=== PATIENT | female | born 1975 | race Caucasian/White ===

== ENCOUNTER 2019-08-12 16:05 | Inpatient (IN) | payer MEDICAID, SELFPAY ==
[~2019-08-12] VITALS: Ht 170.2 cm; Wt 112.9 kg
[2019-08-12 16:08] VITALS: BP 110/72
--- NOTE | 2019-08-12 16:15 | NUR ---
PT WAS BIBA C/O SOB WITH EXERTION AND ATRIAL FLUTER FROM CLINIC. PT DENIES HAVING NAUSEA, VOMITING, CP, NO ACCESSORY MUSCLE USED OR LABOR BREATHING NOTICED. AAOX4 WITH EVEN AND STEADY GAIT; LUNGS CLEAR BL; PT DENIES ANY FEVER, CP, SOB, OR COUGH AT THIS TIME; PATIENT STATES PAIN OF 0/10 AT THIS TIME; VSS; PATIENT POSITIONED FOR COMFORT; HOB ELEVATED; BEDRAILS UP X2; BED DOWN. ER MD MADE AWARE OF PT STATUS.
[2019-08-12] MEDS ORDERED: NACL 0.9% 1,000 ML IV ONE (16:45)
[2019-08-12] MEDS ORDERED: DILTIAZEM 25 MG/5 ML VIAL IVP ONE ×3 (16:45→22:35)
[2019-08-12 17:44] LABS: BASOPHILS % (AUTO) 0.6 % (0.0-2.0); EOSINOPHILS # (AUTO) 0.2 K/uL (0-0.4); EOSINOPHILS % (AUTO) 2.6 % (0.0-4.0); HEMATOCRIT 42.7 % (36-48); HEMOGLOBIN 14.2 g/dL (12.0-16.0); LYMPHOCYTES # (AUTO) 1.3 K/uL (2.5-16.5); LYMPHOCYTES % (AUTO) 17.6 % (20.5-51.1); MEAN CORPUSCULAR HEMOGLOBIN 31 pg (27-31); MEAN CORPUSCULAR HGB CONC 33 g/dL (33-37); MEAN CORPUSCULAR VOLUME 93.4 fL (80-94); MONOCYTES # (AUTO) 0.8 K/uL (0.8-1.0); MONOCYTES % (AUTO) 10.7 % (1.7-9.3); NEUTROPHILS # (AUTO) 5.2 K/uL (1.8-7.7); NEUTROPHILS % (AUTO) 68.5 % (42.2-75.2); PLATELET COUNT (AUTO) 223 K/uL (140-450); RED BLOOD CELL COUNT(AUTO) 4.57 MIL/uL (4.20-5.40); RED CELL DISTRIBUTION WIDTH 13.4 % (11.6-13.7); WHITE BLOOD COUNT (AUTO) 7.5 K/uL (4.8-10.8)
[2019-08-12 17:56] LABS: ALBUMIN 3.2 g/dL (3.4-5.0); ANION GAP 14.1 (8-16); CARBON DIOXIDE 28.4 mmol/L (21-32); CREATININE 1.8 mg/dL (0.6-1.3); FREE T4 (FREE THYROXINE) 1.35 ng/dL (0.76-1.46); POTASSIUM 3.5 mmol/L (3.5-5.1); PROTHROMBIN TIME 11.6 secs (10.8-13.4); THYROID STIMULATING HORMONE 1.9 uIU/mL (0.34-3.74); TOTAL BILIRUBIN 1.4 mg/dL (0.0-1.0)
[2019-08-12] MEDS ORDERED: METOPROLOL 5 MG/5 ML VIAL IVP ONE (19:05)
--- NOTE | 2019-08-12 19:22 | NUR ---
REPORT GIVEN TO JEROME CHARGE NURSE FOR CONTINUITY OF CARE
[2019-08-12 19:27] LABS: APPEARANCE,URINE HAZY (CLEAR); BILIRUBIN,URINE NEGATIVE (NEGATIVE); BLOOD, URINE NEGATIVE (NEGATIVE); COLOR,URINE YELLOW (YELLOW); LEUKOCYTE ESTERASE ,URINE NEGATIVE (NEGATIVE); NITRITE, URINE NEGATIVE (NEGATIVE); UGLUCOSE NEGATIVE (NEGATIVE)
--- NOTE | 2019-08-12 20:26 | NUR ---
PT WANTED SANDWITCH AND GIVEN BY BUZZ DAVIS. PT HAD NO ABDOMINAL PAIN COMPLAINS WHILE SHE IS EATING HER SANDWITCH.
[2019-08-12] MEDS ORDERED: METOPROLOL 5 MG/5 ML VIAL ONE (20:44)
--- NOTE | 2019-08-12 20:49 | NUR ---
Dr. Samuel is evaluating the patient at bedside.
--- NOTE | 2019-08-12 21:26 | NUR ---
pt sign consent for ct angio
--- NOTE | 2019-08-12 21:30 | NUR ---
PT STATED SHE IS NOT . SHE HAS AN IUD (INTRAUTERINE DEVICE) ON.
[2019-08-12] MEDS ORDERED: DOCUSATE SODIUM 100 MG GELCAP PO PRN (21:45)
[2019-08-12] MEDS ORDERED: ONDANSETRON 4 MG/2 ML VIAL IM/IVP PRN (21:45)
[2019-08-12] MEDS ORDERED: ACETAMINOPHEN 325 MG TAB PO PRN (21:45)
[2019-08-12] MEDS ORDERED: MORPHINE SULFATE 2 MG/ML SYR IVP PRN (21:45)
[2019-08-12 22:06] LABS: BARBITURATE, URINE NEGATIVE ng/ml (NEG <=200); BENZODIAZEPINE, URINE NEGATIVE ng/mL (NEG <=200); CANNABINOID, URINE NEGATIVE ng/mL (NEG <=50); COCAINE, URINE NEGATIVE ng/mL (NEG <=300); OPIATE, URINE NEGATIVE ng/mL (NEG <=2000); PHENCYCLIDINE SCREEN,URINE NEGATIVE ng/mL (NEG <=25)
--- NOTE | 2019-08-12 22:15 | NUR ---
DR BACON ( RESIDENT MD) AT THE PT BEDSIDE. PT WILL BE ADMITTED TO THE HOSPITAL PER DR BACON
[2019-08-12 22:16] LABS: MAGNESIUM 1.7 mg/dL (1.8-2.4); THYROID STIMULATING HORMONE 1.94 uIU/mL (0.34-3.74)
--- NOTE | 2019-08-12 22:45 | NUR ---
RECIVED REPORT FROM CHARGE NURSE JEROME DAVIS.
--- NOTE | 2019-08-12 22:45 | NUR ---
PT WILL BE ADMITTED TO TELEMETRY PER DR BACON, AWAITING FOR BED.
[2019-08-12] MEDS ORDERED: MAG SULF 2000 MG/WATER PREMIX 50 ML IV SCH (22:50)
[2019-08-12] MEDS ORDERED: DILT-135 PO (22:53)
--- NOTE | 2019-08-12 22:55 | NUR ---
CARDIZEM 40MG GIVEN IVP OVER 2 MIN. PT ON MOTEL FRONT DESK ATTENDANT. PT HR: 145. PT RESPIRATIONS ARE EVEN AND UNLABORED. SKIN IS WARM AND DRY TO TOUCH. PT DENIES PAIN AT THIS TIME. BED LOCKED AND IN LOWEST POSTIONS. PT IV SITE IS PATENT. NO, REDNESS, OR SWELLING NOTED AT SITE.
--- NOTE | 2019-08-12 23:16 | NUR ---
Dr. Martinez is re-evaluating the patient at bedside.
[2019-08-12] MEDS ORDERED: MAG SULF 2000 MG/WATER PREMIX 50 ML IV ONE (23:30)
[2019-08-12] MEDS ORDERED: DILTIAZEM 125 MG/25 ML VIAL IV ONE (23:35)
[2019-08-12] MEDS: DILTIAZEM 125 MG in DEXTROSE 5% 100 ML IV SCH (23:59)
[2019-08-13] VITALS (88 sets, daily range): BP systolic 90–152; BP diastolic 36–104
--- NOTE | 2019-08-13 | NUR ---
CARDIZEM 125MG IN D5% 100 ML TITRATED. MEDICATION RUNNING AT 10MG/H. IV SITE IS IN L AC 20G. PT IV SITE IS PATENT. NO C/O REDNESS, OR SWELLING AT SITE.
--- NOTE | 2019-08-13 00:15 | NUR ---
CARDIZEM DRIP INCREASED TO 15MLS/HR. PT HR REMAINS AT 145. PT ON GROUNDWATER CONSULTANT. PT AAOX4. DENIES CP AT THIS TIME BUT ADMITS TO DIFFICULTY BREATHING. PT HOB RAISED FOR COMFORT. PT 02SAT@ 97%.
--- NOTE | 2019-08-13 01:14 | NUR ---
PT HR: 128. PT RESPIRATIONS ARE EVEN AND UNLABORED. SKIN IS WARM AND DRY TO TOUCH. PT CONTINUES ON CARDIAC MONIOTR. PT AAO X4. PT DENIES PAIN AT THIS TIME.
--- NOTE | 2019-08-13 01:15 | NUR ---
Patient will be admitted to care of . Admited to ICU. Will go to room 1. Belongings list completed. Report to MARLEN DAVIS.
--- NOTE | 2019-08-13 01:15 | NUR ---
REPORT RECEIVED FROM ER NURSE AT BEDSIDE. PT IN STABLE CONDITION. AAOX4. INTRODUCED SELF TO PT. NO COMPLAINTS OF PAIN. NO SOB ON RA. AFEBRILE@98.0. PT IS AMBULATORY. PT IS CONTINENT AND HAS BEDSIDE COMMODE. PT ON CARDIAC DIET. IV SITE L AC 20G RUNNING CARDIZEM DRIP@15ML/HR PATENT AND INTACT. AND NS@60ML/HR PATENT AND INTACT. SKIN WARM, DRY, AND INTACT WITH NO OPEN WOUNDS. BED LOCKED IN LOW POSITION. CALL MEEHAN WITHIN REACH. SAFETY PRECAUTION IN PLACE. ALL NEEDS MET AT THIS TIME.
--- NOTE | 2019-08-13 02:26 | NUR ---
MAG RIDER GIVEN FOR MAG 1.7.
[2019-08-13] MEDS ORDERED: DIGOXIN 0.25 MG/ML AMP IV SCH ×2 (02:45→14:36)
[2019-08-13] MEDS: NACL 0.9% 1,000 ML IV SCH ×2 (02:48→14:22)
--- NOTE | 2019-08-13 03:16 | NUR ---
DIGOXIN GIVEN FOR INCREASED HR. PT TOLERATED WELL. Addendum: 08/13/19 at 0713 by Jorge Mcadams RN HEPARIN GIVEN SUBQ. Addendum: 08/13/19 at 0714 by Jorge Mcadams RN CORONAVIRUS SANTOS TEST TAKEN.
[2019-08-13] MEDS ORDERED: DILTIAZEM 125 MG/25 ML VIAL IV ONE (05:46)
[2019-08-13] MEDS: DILTIAZEM 125 MG in DEXTROSE 5% 100 ML IV SCH ×2 (06:15→15:39)
--- NOTE | 2019-08-13 06:15 | NUR ---
CARDIZEM NEW BAG HUNG AND RUNNING FOR CONTINUOUS DRIP.
--- NOTE | 2019-08-13 07:28 | NUR ---
REPORT GIVEN TO AM NURSE AT BEDSIDE. PT IN STABLE CONDITION.
--- NOTE | 2019-08-13 07:30 | NUR ---
RECEIVED BEDSIDE REPORT FROM PLANT CUSTODIAN RN. PT IS AAOX4. AFEBRILE. DENIES PAIN. ATRIAL FLUTTER ON MONITOR. PT IS ON ROOM AIR. LUNGS SOUND CLEAR BILATERALLY. BREATHING EVEN AND UNLABORED. NO SOB OR OTHER SIGNS OF RESP DISTRESS. ABDOMEN SOFT, ROUND, NONTENDER WITH ACTIVE BOWEL SOUNDS X 4 QUADRANTS. PERIPHERAL IV G 20 TO LEFT ANTECUBITAL PATENT AND INTACT. PT IS ON CARDIZEM DRIP AT 15 MG/HR AND IVF NS AT 60 ML/HR. SKIN IS INTACT, DRY AND WARM TO TOUCH. PT IS CONTINENT, USES BEDSIDE COMMODE. HOB AT 30 DEGREES, BED IN LOWEST POSITION LOCKED. CALL LIGHT WITHIN REACH. NO SIGNS OF DISTRESS AT THIS TIME. WILL CONTINUE TO MONITOR.
--- NOTE | 2019-08-13 08:53 | NUR ---
DR. MASTERS MADE AWARE OF FLUCTUATING HEART RATE FROM 140'S BPM TO 120'S. PT STILL HAS ATRIAL FLUTTER, ON CARDIZEM DRIP. CARDIOLOGY CONSULT WITH DR. MARTHA Sanchez. BP STABLE. NO NEW ORDER RECEIVED AT THIS TIME.
--- NOTE | 2019-08-13 09:22 | NUR ---
PATIENT HAS BEEN SCREENED AND CATEGORIZED MODERATE NUTRITION RISK. PATIENT WILL BE SEEN WITHIN 3-5 DAYS OF ADMISSION. 08/15/2019-08/17/[address]
--- NOTE | 2019-08-13 12:00 | NUR ---
PT HAVING LUNCH INDEPENDENTLY. NO SIGNS OF DISTRESS. PT IS AFEBRILE. DENIES PAIN. STILL ON CARDIZEM DRIP. SAFETY PRECAUTIONS IN PLACE. WILL CONTINUE TO MONITOR.
[2019-08-13 13:29] LABS: CHOL/HDL RATIO 3.1 (1-4.5)
--- NOTE | 2019-08-13 14:20 | NUR ---
CALLED DR. MARTHA Berger, UPDATED ON PT'S CONDITION. ORDER RECEIVED.
--- NOTE | 2019-08-13 17:45 | NUR ---
PT SEEN BY DR. MARTHA Sanchez. NO NEW ORDER RECEIVED.
--- NOTE | 2019-08-13 18:50 | NUR ---
DR. BACON IN THE UNIT, UPDATES GIVEN ON PT'S CONDITION. NO NEW ORDER RECEIVED AT THIS TIME.
--- NOTE | 2019-08-13 19:30 | NUR ---
REPORT GIVEN TO POWER WOOD SAWYER RN FOR CONTINUITY OF CARE. PT IS IN STABLE CONDITION.
--- NOTE | 2019-08-13 19:35 | NUR ---
ASSUMED CARE OF PT.INITIAL ASSESSMENT COMPLETED.PT AWAKE ALERT AND ORIENTED X4.A FLUTTER ON MONITOR.ON ROOM AIR.DENIES SOB.PERIPHERAL IV TO RT HAND G22 INTACT INFUSING CARDIZEM DRIP 15MG/HR AND ORDERED IVF.ABDOMEN SOFT.NON DISTENDED.PT DENIES N/V.PT ABLE TO VOID FREELY USING BED BERG.ABLE TO AMBULATE WITH STEADY GAIT.DENIES PAIN WHEN ASKED.WILL CLOSELY MONITOR PT
--- NOTE | 2019-08-13 20:45 | NUR ---
PT UP TO TOILET TO VOID.DENIES DIZZINESS,N/V.STILL A FLUTTER ON MONITOR.TOLERATING ROOM AIR.NO SOB NOTED
[2019-08-13] MEDS ORDERED: DILTIAZEM 120 MG CAPER PO SCH (21:00)
--- NOTE | 2019-08-13 22:00 | NUR ---
SNACKS GIVEN PER PTS REQUEST; TOLERATING.NO N/V NOTED.
[2019-08-14] VITALS (93 sets, daily range): BP systolic 93–161; BP diastolic 37–100
[2019-08-14] MEDS: DILTIAZEM 125 MG in DEXTROSE 5% 100 ML IV SCH ×2 (00:21→08:56)
--- NOTE | 2019-08-14 00:58 | NUR ---
BED BATH GIVEN.NO SOB NOTED ON EXERTION.STILL A FLUTTER ON MONITOR.DENIES PAIN
--- NOTE | 2019-08-14 02:00 | NUR ---
PTS CONDITION REMAINS UNCHANGED.STILL ON CARDIZEM DRIP AT 15MG/HR.STILL ON ROOM AIR.DENIES PAIN
--- NOTE | 2019-08-14 04:15 | NUR ---
AWAKE; UP TO BEDSIDE COMMODE.HR UP TO 130'S .VOIDED FREELY.NO SOB NOTED ON EXERTION.DENIES PAIN.
--- NOTE | 2019-08-14 06:41 | NUR ---
PT ASLEEP.EASILY AROUSABLE.NO SOB NOTED.NO S/SX OF PAIN NOTED.PT ABLE TO SELF TURN.PERIPHERAL IV INTACT INFUSING CARDIZEM DRIP AT 15MG/HR AND ORDERED IVF.
[2019-08-14 07:02] LABS: BASOPHILS # (AUTO) 0.2 K/uL (0.00-0.22); BASOPHILS % (AUTO) 3.2 % (0.0-2.0); EOSINOPHILS # (AUTO) 0.2 K/uL (0-0.4); HEMATOCRIT 40.6 % (36-48); HEMOGLOBIN 13.1 g/dL (12.0-16.0); LYMPHOCYTES # (AUTO) 0.9 K/uL (2.5-16.5); LYMPHOCYTES % (AUTO) 15.8 % (20.5-51.1); MEAN CORPUSCULAR HEMOGLOBIN 30 pg (27-31); MEAN CORPUSCULAR HGB CONC 32 g/dL (33-37); MEAN CORPUSCULAR VOLUME 93.9 fL (80-94); MONOCYTES # (AUTO) 0.7 K/uL (0.8-1.0); MONOCYTES % (AUTO) 12.3 % (1.7-9.3); NEUTROPHILS # (AUTO) 3.5 K/uL (1.8-7.7); NEUTROPHILS % (AUTO) 64.7 % (42.2-75.2); PLATELET COUNT (AUTO) 205 K/uL (140-450); RED BLOOD CELL COUNT(AUTO) 4.32 MIL/uL (4.20-5.40); RED CELL DISTRIBUTION WIDTH 13.6 % (11.6-13.7); WHITE BLOOD COUNT (AUTO) 5.5 K/uL (4.8-10.8)
[2019-08-14 07:13] LABS: ANION GAP 10.9 (8-16); CARBON DIOXIDE 25.3 mmol/L (21-32); CREATININE 1.3 mg/dL (0.6-1.3); POTASSIUM 3.2 mmol/L (3.5-5.1)
--- NOTE | 2019-08-14 07:15 | NUR ---
REPORT GIVEN TO RYAN SWANSON.DR MASTERS AT BEDSIDE.
--- NOTE | 2019-08-14 07:17 | NUR ---
RECEIVED REPORT FROM LINING INSERTER NURSE DONITA FOR CONTINUITY OF CARE. PT IS AWAKE AND TALKING TO DR MASTERS AT BEDSIDE. PT IS AAOX4, SPEAKS ECUADOREAN, ABLE TO COMMUNICATE APPROPRIATELY AND MAKE NEEDS KNOWN. RESPIRATION EVEN AND UNLABORED ON ROOM AIR, LUNG SOUNDS CLEAR ON AUSCULTATION. NO SIGNS OF DISTRESS NOTED. IV ON RIGHT HAND 22G, CLEAN AND INTACT, INFUSING NS AT 60 ML/HR AND CARDIZEM AT 15 ML/HR. SKIN CLEAN AND DRY, WARM TO TOUCH. PT IS CONTINENT AND ABLE TO USE THE BEDSIDE COMMODE WITH STANDBY ASSIST. ABDOMEN SOFT AND ROUND. DISCUSSED PLAN OF CARE WITH PATIENT AND PATIENT VERBALIZED UNDERSTANDING. SAFETY MEASURES IN PLACE. LOAN REVIEW ANALYST ATTACHED. BED IN LOW POSITION AND CALL LIGHT WITHIN REACH. INSTRUCTED PT TO USE THE CALL LIGHT FOR ANY ASSISTANCE AND PATIENT WAS AWARE.
[2019-08-14 07:57] LABS: MAGNESIUM 1.8 mg/dL (1.8-2.4); PHOSPHORUS 2.9 mg/dL (2.5-4.9)
[2019-08-14] MEDS ORDERED: POTASSIUM CHLORIDE 10 MEQ TABER PO SCH (08:30)
[2019-08-14] MEDS: NACL 0.9% 1,000 ML IV SCH (08:50)
[2019-08-14] MEDS: APIXABAN 2.5 MG TAB PO SCH ×2 (08:52→20:27)
--- NOTE | 2019-08-14 09:03 | NUR ---
ADMINISTERED SCHEDULED MEDS PER MD ORDER, MEDS EDUCATION PROVIDED TO PT AND PT VERBALIZED UNDERSTANDING. PT TOLERATED PO MEDS WELL. STARTED A NEW BAG OF CARDIZEM AND CONTINUE INFUSING AT 15 ML/HR. STARTED A NEW BAG OF NS AND INFUSING AT 60 ML/HR. PT IS AWAKE AND USING HER PHONE AT THIS TIME. DENIED PAIN, SOB AND DIZZINESS. NO SIGNS OF ACUTE DISTRESS NOTED. EPIC WILLOW SPECIALIST ATTACHED. SAFETY MEASURES IN PLACE. INSTRUCTED PT TO USE THE CALL LIGHT FOR ANY ASSISTANCE AND PT WAS AWARE.
--- NOTE | 2019-08-14 11:02 | NUR ---
DR MARTHA Berger IS TALKING AND ASSESSING PATIENT AT BEDSIDE.
--- NOTE | 2019-08-14 11:20 | NUR ---
PT REQUESTED FOR A SANDWICH, PROVIDED.
[2019-08-14] MEDS ORDERED: AMIODARONE 150 MG in DEXTROSE 5% 100 ML IV SCH (11:45)
--- NOTE | 2019-08-14 11:55 | NUR ---
CHECKED BLOOD GLUCOSE AND RECEIVED 382, ADMINISTERED 10 UNITS OF HUMALOG SUBQ. REPOSITIONED PT AND UPLOADED PRESSURE WITH PILLOWS, PT TOLERATED WELL. NO SIGNS OF DISTRESS NOTED. HOLLOW WARE MAKER ATTACHED. Addendum: 08/14/19 at 1213 by Keena Angel RN INCORRECT PATIENT.
--- NOTE | 2019-08-14 12:11 | NUR ---
STARTED AMIODARONE LOADING BAG, MED EDUCATION PROVIDED TO PATIENT AND PATIENT VERBALIZED UNDERSTANDING, INFUSING PER PHARMACY INSTRUCTED. PT IS EATING LUNCH AT THIS TIME. NO SIGNS OF DISTRESS NOTED. BUSINESS ANALYST ATTACHED.
[2019-08-14] MEDS: AMIODARONE 450 MG in DEXTROSE 5% 250 ML IV SCH ×2 (12:25→22:02)
--- NOTE | 2019-08-14 12:26 | NUR ---
STARTED AMIODARONE AT 1 MG/HR (33 ML/HR) PER PHARMACY PROTOCOL, MED EDUCATION PROVIDED, AND PT VERBALIZED UNDERSTANDING. PT REQUESTED FOR A SODA, PROVIDED. NO SIGNS OF DISTRESS NOTED. SNAKER TRACTOR DRIVER ATTACHED.
--- NOTE | 2019-08-14 13:20 | NUR ---
PT IS RESTING ON BED AT THIS TIME. DENIED PAIN, SOB, AND DIZZINESS. NO SIGNS OF ACUTE DISTRESS NOTED. ESL INSTRUCTOR ATTACHED. SAFETY MEASURES IN PLACE. INSTRUCTED PT TO USE THE CALL LIGHT FOR ANY ASSISTANCE AND PT WAS AWARE.
--- NOTE | 2019-08-14 14:52 | NUR ---
DR MASTERS IS BY BEDSIDE AND TALKING TO PATIENT.
[2019-08-14] MEDS ORDERED: BENZOCAINE/MENTHOL 1 LOZ MM PRN (14:55)
--- NOTE | 2019-08-14 15:49 | NUR ---
PT IS AWAKE AND WATCHING ON BED AT THIS TIME. DENIED PAIN, SOB, AND DIZZINESS. NO SIGNS OF ACUTE DISTRESS NOTED. ANALYTICAL ENGINEER ATTACHED. SAFETY MEASURES IN PLACE. INSTRUCTED PT TO USE THE CALL LIGHT FOR ANY ASSISTANCE AND PT WAS AWARE.
--- NOTE | 2019-08-14 17:08 | NUR ---
ATTENDED TO PT'S CALL LIGHT, PER PT THAT HER DAUGHTER IS GOING TO BRING HER SOME HOME HEALTHY FOOD SHORTLY. EXPLAINED TO PT THAT SHE IS ON CARDIAC DIET AND PT WAS AWARE AND STATED, " OK, I KNOW. MY DAUGHTER WILL JUST BRING ME SOME JUICE AND FRUIT, NOTHING THAT IS UNHEALTHY FOR ME." EXPLAINED TO PT THAT WILL WAIT FOR FRONT LOBBY TO CALL ONCE HER DAUGHTER ARRIVES, PT SAID OK. PT IS AWAKE AND WATCHING TV ON BED AT THIS TIME. NO SIGNS OF DISTRESS NOTED. KEYBOARD ACTION ASSEMBLER ATTACHED. BED IN LOW POSITION AND CALL LIGHT WITHIN REACH.
--- NOTE | 2019-08-14 17:27 | NUR ---
DELIVERED THE BAG TO PATIENT'S ROOM, AND PT RECEIVED IT.
--- NOTE | 2019-08-14 17:51 | NUR ---
DELIVERED DINNER TRAY TO PT'S ROOM AND PT IS ABOUT TO EAT DINNER. NO SIGNS OF DISTRESS NOTED. MILL MANAGER ATTACHED. BED IN LOW POSITION AND CALL LIGHT WITHIN REACH.
--- NOTE | 2019-08-14 18:25 | NUR ---
DECREASED AMIODARONE TO 0.5 MG/HR (16 ML/HR) PER PHARMACY PROTOCOL, MED EDUCATION PROVIDED, AND PT VERBALIZED UNDERSTANDING. PT FINISHED DINNER AND USING HER PHONE AT THIS TIME. DR BACON IS ROUNDING ON PATIENT. NO SIGNS OF DISTRESS NOTED. FLOOR INSTALLER ATTACHED. SAFETY MEASURES IN PLACE. BED IN LOW POSITION AND CALL LIGHT WITHIN REACH.
--- NOTE | 2019-08-14 19:09 | NUR ---
ENDORSED PT AT BEDSIDE TO IT INTEGRATION ARCHITECT NURSE DONITA FOR CONTINUITY OF CARE. PT IS AWAKE AND WATCHING TV. PT IS IN STABLE CONDITION. WATER QUALITY TESTER ATTACHED. SAFETY MEASURES IN PLACE.
[2019-08-14] MEDS ORDERED: MAG SULF 2000 MG/WATER PREMIX 50 ML IV SCH (19:25)
--- NOTE | 2019-08-14 19:30 | NUR ---
assumed care of pt.initial assessment completed.pt awake watching tv. atrial flutter noted on monitor.on room air.no sob noted at this time.peripheral iv intact g22 infusing amiodarone drip at 0.5mg/min(16.66ml/hr) and ordered ivf.pt able to void freely.with steady gait.no c/o pain made at this time
--- NOTE | 2019-08-14 19:53 | NUR ---
PT C/O SORE THROAT,CEPACOL LOZENGE GIVEN ORDERED
[2019-08-14] MEDS: CARVEDILOL 6.25 MG TAB PO SCH (20:26)
--- NOTE | 2019-08-14 20:35 | NUR ---
DR BACON IN THE UNIT.UPDATED PHYSICIAN OF PTS PRESENT CONDITION.MADE AWARE THAT PT HAS SLIGHT SOB ON EXERTION THIS SHIFT WHICH WAS NOT NOTED LAST NIGHT BY PRINCIPAL EXAMINER.PTS HR ALSO ON THE 100'S.PT ON AMIODARONE DRIP AT THIS TIME.TACHYPNEA ALSO NOTED.PRINCIPAL EXAMINER REQUESTED RT TO ALSO CHECK PT.RT CORTEZ AT BEDSIDE.NEW ORDERS RECEIVED FROM DR BACON. PT MADE AWARE OF THE NEW ORDERS AND VERBALIZED UNDERSTANDING
--- NOTE | 2019-08-14 21:17 | NUR ---
PT CLEAR W/ SLIGHT EXP WHEEZE PT STATED SHE DOES FEEL SOB W/ EXERTION EKG WAS DONE AND DR BACON IS AWARE OF EKG RESULTS PER READ/PRINT OUT ACUTE MO
[2019-08-14] MEDS ORDERED: IPRATROPIUM 0.02% 0.5 MG/2.5 ML NEBU INH PRN (21:25)
[2019-08-14] MEDS ORDERED: IPRATROPIUM 0.02% 0.5 MG/2.5 ML NEBU INH ONE (21:29)
--- NOTE | 2019-08-14 22:25 | NUR ---
pt up to bedside commode.sob on exertion noted.pm care/perineal care done.all linen changed.pt now back to bed, snacks given per request.
[2019-08-14] MEDS: HYDROcodone/APAP 5/325 MG 1 TAB TAB PO PRN (22:32)
--- NOTE | 2019-08-14 23:43 | NUR ---
pt still awake having phone conversation with family,verbalized relief from pain to back/throat.pt able to turn self.reminded to use call light for assistance.
[2019-08-15] VITALS (65 sets, daily range): BP systolic 90–179; BP diastolic 35–178
--- NOTE | 2019-08-15 01:00 | NUR ---
pts eyes closed.no sob noted at this time.no pain noted
[2019-08-15] MEDS: NACL 0.9% 1,000 ML IV SCH ×2 (01:24→23:42)
--- NOTE | 2019-08-15 03:31 | NUR ---
pts condition remains unchanged.amiodarone drip still at 0.5mg/min(16.66ml/hr).
[2019-08-15 05:51] LABS: ANION GAP 8.8 (8-16); CARBON DIOXIDE 28.2 mmol/L (21-32); CREATININE 1.4 mg/dL (0.6-1.3)
--- NOTE | 2019-08-15 06:00 | NUR ---
dr roberts in the unit.updated on pts present condition.no new orders at this time
[2019-08-15 06:30] LABS: MAGNESIUM 2.4 mg/dL (1.8-2.4); PHOSPHORUS 3.1 mg/dL (2.5-4.9)
[2019-08-15 07:03] LABS: BASOPHILS % (AUTO) 0.7 % (0.0-2.0); EOSINOPHILS # (AUTO) 0.3 K/uL (0-0.4); HEMOGLOBIN 13.2 g/dL (12.0-16.0); LYMPHOCYTES # (AUTO) 0.9 K/uL (2.5-16.5); LYMPHOCYTES % (AUTO) 16.3 % (20.5-51.1); MEAN CORPUSCULAR HEMOGLOBIN 31 pg (27-31); MEAN CORPUSCULAR HGB CONC 33 g/dL (33-37); MEAN CORPUSCULAR VOLUME 94.1 fL (80-94); MONOCYTES # (AUTO) 0.7 K/uL (0.8-1.0); MONOCYTES % (AUTO) 13.7 % (1.7-9.3); NEUTROPHILS # (AUTO) 3.5 K/uL (1.8-7.7); NEUTROPHILS % (AUTO) 64.3 % (42.2-75.2); PLATELET COUNT (AUTO) 215 K/uL (140-450); RED BLOOD CELL COUNT(AUTO) 4.26 MIL/uL (4.20-5.40); RED CELL DISTRIBUTION WIDTH 13.6 % (11.6-13.7); WHITE BLOOD COUNT (AUTO) 5.4 K/uL (4.8-10.8)
--- NOTE | 2019-08-15 07:17 | NUR ---
report given to christy saxena for continuity of care.pt awake alert and oriented.on room air.still on amiodarone drip
--- NOTE | 2019-08-15 07:30 | NUR ---
RECEIVED REPORT FROM SANCHEZ DAVIS,PATIENT IS AWAKE AND ALERT WELL ORIENTED.SKIN DRY AND WARM ,DENIED PAIN .
[2019-08-15] MEDS ORDERED: METOPROLOL 25 MG TAB PO SCH (09:00)
[2019-08-15] MEDS: APIXABAN 2.5 MG TAB PO SCH ×2 (09:00→21:13)
[2019-08-15] MEDS: CARVEDILOL 6.25 MG TAB PO SCH ×2 (09:00→21:10)
[2019-08-15] MEDS: LOSARTAN 25 MG TAB PO SCH (09:00)
--- NOTE | 2019-08-15 09:34 | NUR ---
DISCHARGE PLANNING: THIS IS A 44 YO MALE PATIENT FROM HOME, WHO CAME IN DUE TO ELEVATED HR WITH SOB. PAST MEDICAL HISTORY HTN. INITIAL DIAGNOSIS OF A FLUTTER. CURRENT LABS INCLUDE WBC 5.4, H/H 13.2/40.0, NA/K 139/4.0, BUN/CREA 13/1.4. UDS SHOWED POSITIVE FOR AMPHETAMINES. NEGATIVE FOR COVID. ON AMIODARONE DRIP AND ELIQUIS. CARDIO CONSULT IN PLACE AND SEEN - CORRECTION OF ELECTROLYTES NEEDED, KEEP K ABOVE 4 AND MAG ABOVE 2, CONT CARDIZEM DRIP AND CONSIDER BETA-KIRBY, STATIN AND ARB IF NO CONTRAINDICATIONS. ON ROOM AIR - O2 SAT 95%. CXR ON ADMISSION SHOWED CARDIOMEGALY WITH PULMONARY VASCULAR CONGESTION AND SMALL BILATERAL EFFUSIONS. CHEST CT SHOWED NO PE. DC PLAN BACK TO HOME ONCE STABLE. Addendum: 08/16/19 at 1107 by Rachel Ruiz PULMO CONSULTED AND SEEN - ADVISED PATIENT TO STAY OFF TOBACCO AND AMPHETAMINE USE. POSSIBLE DOWNGRADE TO TELE PENDING CARDIO. COVID NEGATIVE. BRIDGED TO PO AMIODARONE.
--- NOTE | 2019-08-15 09:56 | NUR ---
CAREER CENTER DIRECTOR NOTE: Patient's Orientation Person Situation Place Time Information Provided By MARÍA BOCANEGRA Comments SW WAS UNABLE TO MEET PATIENT AT BEDSIDE DUE TO MEDICAL CONDITION. Metal Sorter, Realtionship and Phone Number MARÍA BOCANEGRA [phone] Healthcare Power of Field Hauler No Does Patient Have a POLST No Identifying Problems No Social Work Triggers Is A Social Work Consult Needed No Mandate Report Filed No Explanation Of Identifying Problems PATIENT IS A 44-YEAR-OLD MALE ADMITTED FOR ATRIAL FLUTTER. PATIENT HAS PMHX OF HTN. PATIENT WAS ADMITTED FROM HOME. Admitted From Home Pre-Admission Level Of Functioning Status Independent/Ambulatory Prior Resources/Services Used In Last 12 Months No Prior Resources Used Prior DME No Prior DME Used Living Situation Lives With Family House Patient Had Caregiver No Home Support No Caregiver Issues Financial Issues No Known Financial Issue Factors/Needs No D/C Needs Identified Pt/Rep Participated In Discharge Plan Yes Patient/Family Agress With Discharge Plan Yes Discharge Plan Comments TENTATIVE DISCHARGE PLAN IS FOR PATIENT TO RETURN HOME. DC Plan Status Initiated
--- NOTE | 2019-08-15 11:00 | NUR ---
DR THOMAS INFORM REGARDING AMEODARONE IV DRIP . HE SAID TO START PO AMIODARONE AND CONTINUE WITH THE DRIP FOR NOW.
[2019-08-15] MEDS ORDERED: AMIODARONE 200 MG TAB PO SCH (12:30)
--- NOTE | 2019-08-15 17:30 | NUR ---
PATIENT AWAKE AND ALERT WELL ORIENTED CARDIAC DIET TAKEN WELL DENIED PAIN AT THE TIME.
[2019-08-15] MEDS: AMIODARONE 450 MG in DEXTROSE 5% 250 ML IV SCH (18:20)
--- NOTE | 2019-08-15 19:30 | NUR ---
RECEIVED PT FROM SHANTIDEKYUNG COX RN. PT AWAKE, A/O X4. DENIES PAIN UPON QUESTIONING. PUPILS 3MM, PERRL. SPO2 98% ON RA. PT C/O SOB UPON EXERTION. AFLUTTER NOTED ON MONITOR. LUNGS SOUNDS CLEAR THROUGHOUT. BOWEL SOUNDS ACTIVE X4, NO ABD DISTENTION OR TENDERNESS NOTED. SALINE LOCKED 22G PERIPHERAL IV TO RT WRIST PATENT INFUSING AMIODARONE @ 0.5MG/MIN (16.66 ML/HR) AND NS @ 20 ML/HR. PT USES BEDSIDE COMMODE INDEPENDENTLY. PEDAL PULSES PALPABLE. SKIN WARM, DRY, AND INTACT. BED LOW AND LOCKED WITH CALL LIGHT IN EASY REACH. WILL CONT TO MONITOR FOR CHANGES IN CONDITION.
--- NOTE | 2019-08-15 19:30 | NUR ---
REPORT GIVE TO MARLENE DAVIS.
[2019-08-15] MEDS: AMIODARONE 200 MG TAB PO SCH (21:11)
--- NOTE | 2019-08-15 21:15 | NUR ---
HELD AMIODARONE DRIP AT THIS TIME, PER .
[2019-08-15] MEDS: HYDROcodone/APAP 5/325 MG 1 TAB TAB PO PRN (21:16)
--- NOTE | 2019-08-15 21:16 | NUR ---
C/O PAIN TO LOWER BACK @ 8/. REPOSITIONED PT. NON-PHARMACOLOGIC INTERVENTIONS INEFFECTIVE. MEDICATED ORDERED.
[2019-08-16] VITALS (8 sets, daily range): BP systolic 129–170; BP diastolic 72–97
--- NOTE | 2019-08-16 | NUR ---
PT REQUESTED LEADS BE REPLACED DUE TO SKIN IRRITATION. NO VISIBLE SKIN BREAKDOWN AT THIS TIME. REPLACED ELECTRODES REQUESTED. WILL CONT TO MONITOR
--- NOTE | 2019-08-16 02:00 | NUR ---
DENIES PAIN AT THIS TIME. ASSISTED TO REPOSITION. BED LOW AND LOCKED WITH CALL LIGHT IN EASY REACH. WILL CONT TO MONITOR FOR CHANGES.
--- NOTE | 2019-08-16 04:00 | NUR ---
PT SLEEPING IN BED AT THIS TIME. EASILY AROUSABLE. ALL NEEDS BEING MET. SAFETY PRECAUTIONS REMAIN IN PLACE. WILL CONT TO MONITOR FOR CHANGES.
[2019-08-16 05:50] LABS: ANION GAP 13.5 (8-16); CARBON DIOXIDE 25.7 mmol/L (21-32); CREATININE 1.5 mg/dL (0.6-1.3); POTASSIUM 4.2 mmol/L (3.5-5.1)
[2019-08-16 05:53] LABS: MAGNESIUM 2.3 mg/dL (1.8-2.4); PHOSPHORUS 2.6 mg/dL (2.5-4.9)
[2019-08-16 05:54] LABS: BASOPHILS # (AUTO) 0.1 K/uL (0.00-0.22); BASOPHILS % (AUTO) 1.6 % (0.0-2.0); EOSINOPHILS # (AUTO) 0.3 K/uL (0-0.4); EOSINOPHILS % (AUTO) 4.3 % (0.0-4.0); HEMATOCRIT 40.9 % (36-48); HEMOGLOBIN 13.4 g/dL (12.0-16.0); LYMPHOCYTES # (AUTO) 1.1 K/uL (2.5-16.5); LYMPHOCYTES % (AUTO) 19.1 % (20.5-51.1); MEAN CORPUSCULAR HEMOGLOBIN 31 pg (27-31); MEAN CORPUSCULAR HGB CONC 33 g/dL (33-37); MEAN CORPUSCULAR VOLUME 94.5 fL (80-94); MONOCYTES # (AUTO) 0.8 K/uL (0.8-1.0); MONOCYTES % (AUTO) 12.9 % (1.7-9.3); NEUTROPHILS # (AUTO) 3.7 K/uL (1.8-7.7); NEUTROPHILS % (AUTO) 62.1 % (42.2-75.2); PLATELET COUNT (AUTO) 222 K/uL (140-450); RED BLOOD CELL COUNT(AUTO) 4.32 MIL/uL (4.20-5.40); RED CELL DISTRIBUTION WIDTH 13.8 % (11.6-13.7); WHITE BLOOD COUNT (AUTO) 5.9 K/uL (4.8-10.8)
--- NOTE | 2019-08-16 07:45 | NUR ---
AWAKE, ALERT AND ORIENTED X 4. IV 0.9 NS TKO INFUSING VIA R HAND IV SITE. CAR SHUNTER SHOWS ATRIAL FLUTTER HR 95 TO 103/MIN. 02 SAT 98% TO 99% ON RA. PT. STATES SHE STILL GETS SL. SOB WITH EXERTION. USES BEDSIDE COMMODE PRN. BENJA. ACTIVITY FAIRLY WELL.
--- NOTE | 2019-08-16 08:00 | NUR ---
DR. Deejay MAYFIELD HERE TO SEE AND EXAMINE PT.
[2019-08-16] MEDS: AMIODARONE 200 MG TAB PO SCH (08:13)
[2019-08-16] MEDS: CARVEDILOL 6.25 MG TAB PO SCH (08:14)
[2019-08-16] MEDS: LOSARTAN 25 MG TAB PO SCH (08:17)
[2019-08-16] MEDS: APIXABAN 2.5 MG TAB PO SCH (08:18)
[2019-08-16] MEDS ORDERED: LORATADINE 10 MG TAB PO SCH ×2 (09:20→15:20)
--- NOTE | 2019-08-16 09:30 | NUR ---
DR. FISCHER HERE TO SEE AND EXAMINE PT.
--- NOTE | 2019-08-16 12:00 | NUR ---
SMOOTH PLATER SHOWS A FLUTTER WITH CONTROLLED VENT. RATE,
--- NOTE | 2019-08-16 12:45 | NUR ---
C/O PAIN AT IV SITE. NO REDNESS NOR SWELLING NOTED. DC'D. IV STARTED AT RT FA WITH G 20 ANGIO X 1 ATTEMPT.
--- NOTE | 2019-08-16 13:06 | NUR ---
ENDORSED TO KYUNG RN FOR CONTINUITY OF CARE.
--- NOTE | 2019-08-16 14:15 | NUR ---
PT. COMPLAIN WANTED TO GO HOME. CONCERN ABOUT HER CHILDREN. DR. THOMAS AND DR. CELAYA INFORMED. SENT EKG STRIP TO DR THOMAS .
--- NOTE | 2019-08-16 15:20 | NUR ---
DR. THOMAS CALLED BACK THAT SHE MUST TAKE MEDICINE ORDERED.AND TO SEE HIM IN HIS OFFICE IN A WEEK.
[2019-08-16] MEDS ORDERED: AMIO200T10 PO (15:41)
[2019-08-16] MEDS ORDERED: CEPH500C16 PO (15:41)
[2019-08-16] MEDS ORDERED: ATRN INH (15:41)
[2019-08-16] MEDS ORDERED: LOSA25TA1 PO (15:41)
[2019-08-16] MEDS ORDERED: APIX2.5 PO (15:41)
[2019-08-16] MEDS ORDERED: CARV6.252 PO (15:41)
--- NOTE | 2019-08-16 16:30 | NUR ---
A PACKET OF DISCHARGE INFORMATION GAVE TO PATIENT AND EXPLAIN TO PATIENT TO MAKE APPOINTMENT WITH OFFICE AND GET MED. ORDERED . SHE UNDERSTAND AND WILL FOLLOW INSTRUCTION,
--- NOTE | 2019-08-16 16:50 | NUR ---
PT. D/C TO SELF CARE AT HOME, WHEELCHAIR HRE TO [employer]ICLE THAT PICK HER UP BY HER MOTHER.
== END 2019-08-16 16:50 | disposition home or self-care (01) | DRG 201 ==
LOC: MED 16:05 → MIC 23:23 → EEVIPCON 23:23
PROVIDERS: ADMIT General Practice; ATTEND General Practice
DX: I48.91 Unspecified atrial fibrillation (principal); N17.0 Acute kidney failure with tubular necrosis; J96.00 Acute respiratory failure, unspecified whether with hypoxia or hypercapnia; I50.43 Acute on chronic combined systolic (congestive) and diastolic (congestive) heart failure; J18.9 Pneumonia, unspecified organism; R65.10 Systemic inflammatory response syndrome (SIRS) of non-infectious origin without acute organ dysfunction; I11.0 Hypertensive heart disease with heart failure; E44.1 Mild protein-calorie malnutrition; E83.42 Hypomagnesemia; E87.6 Hypokalemia; E66.9 Obesity, unspecified; Z68.39 Body mass index [BMI] 39.0-39.9, adult; Z71.3 Dietary counseling and surveillance; F15.90 Other stimulant use, unspecified, uncomplicated; Z88.0 Allergy status to penicillin; I48.92 Unspecified atrial flutter; F15.99 Other stimulant use, unspecified with unspecified stimulant-induced disorder; E66.01 Morbid (severe) obesity due to excess calories; E87.70 Fluid overload, unspecified; Z03.818 Encounter for observation for suspected exposure to other biological agents ruled out
CPT/HCPCS: 36415; 71045; 71275; 80048; 80053; 80305; 81003; 82550; 83036; 83605; 83735; 83880; 84100; 84439; 84443; 84484; 85025; 85610; 85730; 87040; 87081; 87086; 93005; 94640; 96374; 96375; 96376; 99291; J0282; J0696; J1160; J1644; J3475; J3490; J7030; J7060; J7644; Q0092; Q9967; U0003-CS